=== PATIENT | male | born 1980 | race Caucasian/White ===

== ENCOUNTER 2021-06-20 13:53 | Emergency (ER) | payer BC ==
[2021-06-20 13:59] VITALS: BP 139/111; PULSE 94; RESP 20; TEMP 97.7
[2021-06-20] MEDS ORDERED: diphenhydrAMINE 50 MG/ML 1 ML VIAL IVP STA (14:18)
[2021-06-20] MEDS ORDERED: SODIUM CHLORIDE 0.9% 1,000 ML IV ONE (14:18)
[2021-06-20] MEDS ORDERED: METOCLOPRAMIDE 5 MG/ML 2 ML VIAL IVP STA (14:19)
--- NOTE | 2021-06-20 14:58 | ED ---
General Adult HPI - General Chief complaint: Shortness of Breath Stated complaint: SOB Time Seen by Provider: 06/20/21 14:00 Source: patient, RN notes reviewed, old records reviewed Mode of arrival: EMS - History of Present Illness Initial comments: This is a 40-year-old male who has past medical history significant for migraines. Patient states she was at work and he started getting a migraine headache he was on the right side of his head like it always is and then he got extremely photophobic was hard to open his eyes confused so light-sensitive. Patient states he was physically capable of opening on but it was very difficult because of the sensitivity. Patient states shortly after that he felt like he had to take a deep breath wasn't and she short of breath just he did not take deep breaths. Patient states the symptoms seemed to resolve and now is just left with a 6 out of 10 right-sided headache. Patient states the symptoms were not quite the same as his normal migraine symptoms so he decided come to the emergency department. - Related Data Allergies Allergy/AdvReac Type Severity Reaction Status Date / Time No Known Allergies Allergy Verified 06/20/21 14:51 Review of Systems ROS Statement: Those systems with pertinent positive or pertinent negative responses have been documented in the HPI. ROS Other: All systems not noted in ROS Statement are negative. Past Medical History Smoking Status: Former smoker General Exam - General Exam Comments Initial Comments: GENERAL: Patient is well-developed and well-nourished. Patient is nontoxic and well- hydrated and is in minimal distress. ENT: Neck is soft and supple. No significant lymphadenopathy is noted. Oropharynx is clear. Moist mucous membranes. Neck has full range of motion without eliciting any pain. EYES: The sclera were anicteric and conjunctiva were pink and moist. Extraocular movements were intact and pupils were equal round and reactive to light. Eyel ids were unremarkable. PULMONARY: Unlabored respirations. Good breath sounds bilaterally. No audible rales rhonchi or wheezing was noted. At no time did the patient appeared to have any difficulty breathing CARDIOVASCULAR: There is a regular rate and rhythm without any murmurs gallops or rubs. ABDOMEN: Soft and nontender with normal bowel sounds. SKIN: Skin is clear with no lesions or rashes and otherwise unremarkable. NEUROLOGIC: Patient is alert and oriented x3. Cranial nerves II through XII are grossly intact. Motor and sensory are also intact. Normal speech, volume and content. Symmetrical smile. Finger to nose cerebellar testing is normal bilaterally MUSCULOSKELETAL: Normal extremities with adequate strength and full range of motion. LYMPHATICS: No significant lymphadenopathy is noted PSYCHIATRIC: Normal psychiatric evaluation. Course Vital Signs 06/20/21 13:55 Temperature 97.7 F Pulse Rate 94 Respiratory 20 Rate Blood Pressure 139/111 O2 Sat by Pulse 96 Oximetry Medical Decision Making - Medical Decision Making CT of the brain shows no acute abnormality. Chest x-ray shows no acute abnormality. I went back into reevaluate the patient he received Toradol Benadryl and Reglan and was feeling significantly better. Patient felt good enough to go home at this time as father stated he would take him home. Patient was oxygenating between 96 and 98% on room air Disposition Clinical Impression: Headache, migraine, Hypertension Disposition: HOME SELF-CARE Condition: Good Instructions (If sedation given, give patient instructions): Migraine Headache (ED), Hypertension (ED) Additional Instructions: Patient should follow-up with primary medical care doctor to follow-up in his high blood pressure. Patient should return to the emergency department during new or worsening symptoms. Is patient prescribed a controlled substance at d/c from ED?: No Referrals: Lazaro Abdi MD [Primary Care Provider] - 1-2 days Time of Disposition: 15:54
--- NOTE | 2021-06-20 15:31 | CT ---
EXAMINATION TYPE: CT brain wo con DATE OF EXAM: 06/20/2021 COMPARISON: none HISTORY: Acute headache, normal neuro exam CT DLP: 1099.[address] of the brain was performed. The ventricles, basal cisterns and sulci overlying the cerebral convexities demonstrate a normal appe arance. There is no evidence for intracranial hemorrhage or sulcal effacement. No mass effects are seen. Osseous calvarium is intact. If symptoms persist consider MRI as clinically warranted. IMPRESSION: 1. No acute intracranial process is seen at this time.
[2021-06-20] MEDS ORDERED: KETOROLAC 15 MG/ML 1 ML VIAL IVP STA (15:35)
--- NOTE | 2021-06-20 15:48 | XR ---
EXAMINATION TYPE: XR chest 2V DATE OF EXAM: 06/20/2021 COMPARISON: None available HISTORY: 40-year-old male, shortness of breath TECHNIQUE: Frontal and lateral views of the chest are obtained. FINDINGS: Grossly unremarkable lungs. No pleural effusion or pneumothorax. No cardiomegaly. Unremarkable bony t horacic cage. IMPRESSION: Unremarkable chest x-ray.
== END 2021-06-20 16:14 | disposition home or self-care (01) ==
LOC: EC 13:53
DX: G43.909 Migraine, unspecified, not intractable, without status migrainosus (principal); I10 Essential (primary) hypertension; Z87.891 Personal history of nicotine dependence
CPT/HCPCS: 71046; 70450; 99285; 96374; 96375; 96361; J1200; J2765; J1885